=== PATIENT | male | born 1940 | race Hispanic/Latino ===

== ENCOUNTER 2018-04-12 13:21 | Inpatient (IN) | payer MEDICARE, MEDICAID ==
[2018-04-12 14:27] LABS: #Eosinphils 0.1 thou/uL (0.0-0.7); #Lymphocytes 1.2 thou/uL (1.20-3.40); #Monocytes 0.4 thou/uL (0.11-0.59); #Neutrophils 4.7 thou/uL (1.40-6.50); %Basophils 0.3 % (0.0-1.0); %Lymphocytes 18.3 % (21.0-51.0); %Monocytes 5.6 % (0.0-10.0); %Neutrophils 73.7 % (42.0-75.0); Hemoglobin 11.8 g/dL (14.0-18.0); Mean Corpuscular HGB CONC 33.4 g/dL (32.0-36.0); Mean Corpuscular Hemoglobin 34.5 pg (27.0-31.0); Mean Platelet Volume 8.7 fL (7.4-10.4); Platelet Count 141 thou/uL (130-400); RBC Distribution Width 13.5 % (11.5-14.5); Red Blood Cell (RBC) Count 3.43 mill/uL (4.70-6.10); White Blood Cell (WBC) Count 6.4 thou/uL (4.8-10.8)
[2018-04-12 14:51] LABS: ALT (SGPT) 13 U/L (8-55); AST (SGOT) 12 U/L (5-34); Albumin 3.9 g/dL (3.4-4.8); Alkaline Phosphatase 178 U/L (40-150); Anion Gap 18 mmol/L (10-20); BUN (Urea Nitrogen) 53 mg/dL (8.4-25.7); Bilirubin, Total 0.8 mg/dL (0.2-1.2); CK (CPK) 50 U/L (30-200); Calc. Creatinine Clearance 0 mL/min (70-130); Calcium 9.3 mg/dL (7.8-10.44); Carbon Dioxide 26 mmol/L (23-31); Chloride 94 mmol/L (98-107); Estimated GFR-MDRD 6; Globulin 3.7 g/dL (2.4-3.5); Glucose 305 mg/dL (83-110); Lipase 292 U/L (8-78); Potassium 6.3 mmol/L (3.5-5.1); Protein, Total 7.6 g/dL (5.8-8.1); Sodium 132 mmol/L (136-145)
[2018-04-12 14:55] LABS: CKMB 1.5 ng/mL (0-6.6); Troponin I 0.049 ng/mL (< 0.028)
--- NOTE | 2018-04-12 15:01 | RAD ---
UPRIGHT PORTABLE CHEST ONE VIEW: History: 77-year-old male with history of abdominal pain with vomiting and chills this morning. Comparison: 02-26-17 FINDINGS: Rotation to the right. Multiple right sided vascular stents. Post underlying sternotomy. Mild cardiom egaly. Several small circumscribed lucencies overlying the left humerus proximally, possibly artifact ual, although they could conceivably represent small lytic bone lesions. IMPRESSION: No significant acute intrathoracic disease. Post underlying sternotomy with borderline cardiomegaly. Atherosclerosis of the aorta with ectasia. Multiple right sided vascular stents. Two small circumscri bed lucencies overlying the left proximal humerous, nonspecific. POS: C
[2018-04-12] MEDS ORDERED: Atropine Sulfate 1 mg/10 ml Syringe ONE (15:17)
[2018-04-12] MEDS ORDERED: Dextrose 50% Abboject 50 ML SYRINGE ONE (15:19)
[2018-04-12] MEDS ORDERED: Insulin Regular 300 UNITS/3 ML VIAL ONE (15:19)
[2018-04-12] MEDS ORDERED: Sodium Bicarbonate 2.5 MEQ/5 ML VIAL ONE (15:19)
[2018-04-12] MEDS ORDERED: Calcium Chloride 1 GM/10 ML Abboject SYRINGE ONE ×4 (15:19→16:06)
[2018-04-12] MEDS ORDERED: Calcium Gluc 4.6 MEQ/10 ML (100 MG/ML) ONE (15:20)
[2018-04-12 15:32] LABS: Base Excess-Venous 4.3 mmol/L (0 (+/- 2.5)); Bicarbonate (HCO3v) 30.6 mmol/L (1.0-85.0); CO2 Tension (PvCO2) 52.1 mmHg (41.0-51.0); Calcium, Ionized 1.03 mmol/L (1.12-1.32); Hemoglobin - Calc 12.6 g/dL (12.0-18.0); O2 Tension (PvO2) 20.9 mmHg (35.0-45.0); Potassium 7.7 mmol/L (3.4-4.7); T. Carbon Dioxide 32.2 mmol/L (1.0-85.0); pH (Venous) 7.376 (7.35-7.45); vO2 Saturation-calc 32.1 % (94-98)
[2018-04-12] MEDS ORDERED: Ondansetron ODT 4 MG TAB ONE (15:36)
[2018-04-12] MEDS ORDERED: Albuterol Sulfate 2.5 mg/3 ml Neb ONE (15:37)
[2018-04-12] MEDS ORDERED: Albuterol Sulfate 2.5 mg/0.5 ml Neb ONE (15:37)
[2018-04-12] MEDS ORDERED: Acetaminophen 325 MG TAB PO PRN (16:00)
[2018-04-12] MEDS ORDERED: Acetaminophen 650 MG Suppository PR PRN (16:00)
[2018-04-12] MEDS ORDERED: Bisacodyl 5 MG TAB PO PRN (16:00)
[2018-04-12] MEDS ORDERED: Insulin Regular 300 UNITS/3 ML VIAL IVP SCH (16:15)
[2018-04-12] MEDS ORDERED: Dextrose 50% Abboject 50 ML SYRINGE SLOW IVP SCH (16:15)
[2018-04-12 17:19] VITALS: BMI 23.9
[2018-04-12] MEDS ORDERED: HumaLOG 300 UNITS/3 ML VIAL SC PRN (18:08)
[2018-04-12] MEDS ORDERED: Dextrose 50% Abboject 50 ML SYRINGE SLOW IVP PRN (18:08)
[2018-04-12] MEDS ORDERED: Dextrose 5% in Water 1,000 ML IV PRN (18:08)
[2018-04-12] MEDS ORDERED: Insulin Regular 300 UNITS/3 ML VIAL SC PRN (18:08)
--- NOTE | 2018-04-12 18:16 | PDOC.EVN ---
Event Note - Event Note Event Note: 17:00-17:33 hours. Discussed with patient re: medical comorbidities including severe hyperkalemia causing bradycardia. Discussed treatment options. Also discussed goals of care. patient would like to be full code, but if he changes his mind after discussion with family members he will let the team know. Full Code status documented. Grandethan Casillas was in the room and was the charcoal burner beehive kiln for this clinical encounter.
--- NOTE | 2018-04-12 18:43 | HP ---
PRIMARY CARE PROVIDER: Jamari Mcmanus M.D. CHIEF COMPLAINT: Feeling unwell. HISTORY OF PRESENT ILLNESS: Mr. Casillas is a pleasant 77-year-old gentleman, who was seen at [facility] on 04/12/2018. Mr. Casillas is mainly Yakut speaking. His grandson Jack Casillas was the direct support professional caregiver for this clinical encounter. Mr. Casillas was hospitalized at [facility] in 02/2017. At that point, I not e that he had junctional bradycardia and it was advised that he be dialyzed 4 times a week, since on Mondays he develops junctional bradycardia from hyperkalemia. His grandson reports that he has been getting dialysis 4 times a week, on Thursday, Thursday, , and Thursday. He has not missed any o f his dialysis sessions. Today morning, he complained of nausea. He denied any abdominal pain, but reported epigastric abdomi nal discomfort, which he is unable to describe at this time. He was also diaphoretic, clammy and com plained of generalized weakness and difficulty with walking. He was therefore brought to the emergen cy room. In the emergency room, he was noted to have an episode of bradycardia into the 20s heart rate. He wa s resuscitated by emergency room physician and referred for admission. He currently denies any chest pain. He denies any fevers or chills. He denies any nausea or abdomin al pain. REVIEW OF SYSTEMS: All other systems reviewed and found to be negative. PAST MEDICAL HISTORY: Significant for coronary artery disease; diabetes mellitus, type 2; end-stage renal disease, on hemodialysis 4 times a week; hypertension; chronically elevated troponin; dyslipide qing; and obesity. PAST SURGICAL HISTORY: Coronary artery bypass graft, dialysis shunt to right upper and appendectomy. SOCIAL HISTORY: The patient denies tobacco use, alcohol use or recreational drug use. FAMILY HISTORY: He denies any family history of premature coronary artery disease. ALLERGIES: No known drug allergies. CURRENT MEDICATIONS: These need to be clarified, but he appears to be on metoprolol, Renvela, glipiz wes, lisinopril, simvastatin, calcium acetate, aspirin, and Sensipar. CODE STATUS: I discussed his code status. He is FULL CODE. He will discuss with his family and in case he changes his mind, he will let the medical team know. PHYSICAL EXAMINATION: GENERAL: On examination, Mr. Casillas is awake and alert, not in acute distress. VITAL SIGNS: Blood pressure is 175/46, pulse is 91, he is breathing at rate of 20 and saturating 97% on room air. He is afebrile. EYES: No scleral icterus. No conjunctival pallor. ENT: Moist mucosal membranes, no oropharyngeal erythema or exudates. NECK: Supple, nontender, normal range of movement. Trachea is midline. RESPIRATORY: Accessory muscles of breathing are not active. Chest wall movements are symmetric bila terally. Lungs are clear to auscultation without wheeze, rhonchi or crepitations. CARDIOVASCULAR: S1 and S2 are heard, regular. Peripheral pulses palpable. No carotid bruit, no per icardial rub. ABDOMEN: Soft, nontender, bowel sounds heard, no hepatomegaly, no splenomegaly. NEUROLOGIC: Cranial nerves II-XII intact. Deep tendon reflexes 2+. MUSCULOSKELETAL: Power is 5/5 in all 4 extremities. He has dialysis access in the right upper arm. SKIN: No rashes or subcutaneous nodules. LYMPHATIC: No cervical lymphadenopathy. PSYCHIATRIC: Normal mood, normal affect, the patient is oriented to person and place, not to time. IMAGING AND LABORATORY DATA: Mr. Casillas's labs and investigations were reviewed. I reviewed his electrocardiogram, which at 1542 hours shows marked sinus bradycardia, with a ventricular rate of 32 beats per minute as well as tall tented T waves. I also reviewed his chest x-ray, which does not alexandra w any pulmonary infiltrates. He has normal white count, macrocytic anemia with hemoglobin 11.8, norm al platelet count, hyponatremia with sodium of 132, hyperkalemia with potassium of 7.7, elevated crea tinine of 9.89, elevated alkaline phosphatase of 178, otherwise unremarkable liver profile, elevated lipase of 292 and elevated troponin I of 0.049. I note that his troponins have been higher in the me st. ASSESSMENT AND PLAN: Mr. Casillas is a pleasant 77-year-old gentleman who was seen at [facility] on 04/12/2018. His problem list includes: 1. Hyperkalemia: Mr. Casillas is presenting with hyperkalemia. He has received calcium, insulin, followed by dextrose, Kayexalate and beta agonist nebulizers. He is also being prepared for dialysis on an emergent basis. We will recheck his potassium level. 2. Hyponatremia: Mild, we will recheck. 3. Elevated troponin I: His troponin is in the indeterminate range. He denies having any chest maxine n. We will trend troponins for now. 4. End-stage renal disease on dialysis: Maintenance dialysis per Nephrology Service. 5. Elevated lipase: The patient came in with initial complaint of epigastric discomfort, although t hat has resolved now. We will recheck his lipase level. 6. Diabetes mellitus, type 2: Start Accu-Cheks, insulin sliding scale. 7. Hypertension: Monitor vital signs, titrate antihypertensives as needed. 8. Dyslipidemia: Continue home medications once clarified. Many thanks for allowing me to participate in your patient's care. Please feel free to contact me wi th any questions or concerns. LEVEL OF RISK: High. LEVEL OF COMPLEXITY: High.
[2018-04-12 19:00] LABS: CKMB 1.6 ng/mL (0-6.6); Troponin I 0.062 ng/mL (< 0.028)
[2018-04-12] MEDS: hydrALAZINE 20 MG/ML VIAL SLOW IVP PRN (19:15)
[2018-04-12 19:18] LABS: HBSAg Index 0.39 S/CO (0-0.99); Hep B Surf Ag Non-Reactive S/CO (NonReactive)
[2018-04-12 21:12] LABS: Potassium 3.4 mmol/L (3.5-5.1)
[2018-04-12] MEDS: Heparin 5,000 UNITS/ML VIAL SC SCH (21:38)
[2018-04-12 22:57] LABS: CKMB 3.3 ng/mL (0-6.6)
[2018-04-12 23:21] LABS: Troponin I 0.226 ng/mL (< 0.028)
[2018-04-12] MEDS ORDERED: Atorvastatin Calcium 20 MG TAB PO SCH (23:30)
[2018-04-12] MEDS ORDERED: Lisinopril 10 MG TAB PO SCH (23:30)
--- NOTE | 2018-04-13 01:45 | CON ---
DATE OF CONSULTATION: 04/12/2018 HISTORY OF PRESENT ILLNESS: This is a 77-year-old gentleman who apparently was brought into the ER a fter he became somewhat lightheaded. He was found to be bradycardic in the ER. Heart rates in the 2 0s and 30s. He has had a similar episode in the past. Apparently during his last admission, he also was found to have a junctional bradycardia in the 30s. His dialysis was increased from 3 times a day to 4 times a day. He apparently missed his dialysis yesterday. The patient is presently with grandson. Denies any chest pain or shortness of breath. He is going to be dialyzed in the next hour or two. He is being admitted to the MICU, reason for consultation. He denies any difficulty breathing, coughing, or wheezing. PAST MEDICAL HISTORY: Diabetes, end-stage renal disease, lipidemia, hypertension. PAST SURGICAL HISTORY: CABG access, appendix. MEDICATIONS: His list of medicine from home has included aspirin 81, simvastatin 40, lisinopril 5, a nd glipizide 10. ALLERGIES: None. TOBACCO: None. PHYSICAL EXAMINATION: VITAL SIGNS: Pulse 70-80s, blood pressure 130/80, respirations 18, sats are 95%. GENERAL: Awake, alert, responsive. CHEST: Reveals no wheezing. CARDIAC: Normal S1, S2, no gallops. ABDOMEN: Soft. NEUROLOGIC: He is awake, alert, and responsive. EXTREMITIES: No edema. LABORATORY DATA: Shows white count of 6000, H&H 11 and 35, platelet count was 141. Sodium 132, pota ssium 6.3, chloride 91. Venous blood gas shows pH 7.1. BUN is 53, creatinine 9.0. Chest x-ray show s lot of this from edema. IMPRESSION: 1. Bradycardia, probably secondary to hyperkalemia. 2. Renal failure on dialysis 4 times a week. 3. Diabetes. 4. High cholesterol. 5. Hypertension. PLAN: He is going to be dialyzed, observe in the ICU. His bradycardia becomes more symptomatic, con hot mill worker placing an external pacemaker, otherwise consult Cardiology. We will follow. This is a consultation note, 70 minutes of which 50% in direct patient care.
[2018-04-13 05:34] LABS: #Basophils 0.1 thou/uL (0.0-0.2); #Eosinphils 0.1 thou/uL (0.0-0.7); #Lymphocytes 1.6 thou/uL (1.20-3.40); #Monocytes 0.5 thou/uL (0.11-0.59); #Neutrophils 4.2 thou/uL (1.40-6.50); %Basophils 0.9 % (0.0-1.0); %Eosinophils 1.6 % (0.0-10.0); %Lymphocytes 25.1 % (21.0-51.0); %Monocytes 7.8 % (0.0-10.0); %Neutrophils 64.5 % (42.0-75.0); Hemoglobin 12.3 g/dL (14.0-18.0); Mean Corpuscular HGB CONC 33.4 g/dL (32.0-36.0); Mean Corpuscular Hemoglobin 34.7 pg (27.0-31.0); Platelet Count 135 thou/uL (130-400); RBC Distribution Width 13.5 % (11.5-14.5); Red Blood Cell (RBC) Count 3.53 mill/uL (4.70-6.10); White Blood Cell (WBC) Count 6.5 thou/uL (4.8-10.8)
[2018-04-13 06:08] LABS: Anion Gap 17 mmol/L (10-20); BUN (Urea Nitrogen) 28 mg/dL (8.4-25.7); Calc. Creatinine Clearance 11 mL/min (70-130); Calcium 9.6 mg/dL (7.8-10.44); Carbon Dioxide 27 mmol/L (23-31); Chloride 99 mmol/L (98-107); Estimated GFR-MDRD 10; Glucose 97 mg/dL (83-110); Lipase 43 U/L (8-78); Potassium 4.5 mmol/L (3.5-5.1); Sodium 138 mmol/L (136-145)
[2018-04-13] MEDS: Calcium Acetate 667 MG CAP PO SCH ×3 (08:07→17:46)
[2018-04-13] MEDS: Sevelamer Carbonate 800 MG TAB PO SCH ×3 (08:07→17:46)
[2018-04-13] MEDS: Cinacalcet HCl 30 MG TAB PO SCH (08:08)
[2018-04-13] MEDS: Lisinopril 10 MG TAB PO SCH ×2 (08:09→21:11)
[2018-04-13] MEDS: Aspirin 81 mg Enteric Coated Tablet PO SCH (08:09)
[2018-04-13] MEDS: Heparin 5,000 UNITS/ML VIAL SC SCH ×3 (08:09→21:12)
--- NOTE | 2018-04-13 08:53 | PRG ---
DATE OF SERVICE: 04/13/2018 This morning he is awake, alert, responsive. PHYSICAL EXAMINATION: VITAL SIGNS: Pulse is 64, sats 90%, respiration 19, blood pressure 151/21. He was dialyzed yesterda y evening. GENERAL: He feels better. CHEST: Decreased breath sounds, no wheezing. CARDIAC: Normal S1-S2. No gallops. ABDOMEN: No masses. IMPRESSION: 1. Chronic renal failure on 4 weeks of dialysis. 2. Symptomatic bradycardia. PLAN: Continue present treatment. He can be transferred out of the ICU to a monitored bed. Await i nput from Cardiology. Pulmonary Critical Care will follow while in the ICU.
--- NOTE | 2018-04-13 12:20 | PDOC.PN ---
- Subjective Encounter Start Date: 04/13/18 Encounter Start Time: 12:00 Subjective: Patient reports feeling better. No CP/SOB. No N/V. Eating lunch. - Objective MAR Reviewed: Yes Vital Signs & Weight: Vital Signs (12 hours) Temp Pulse Resp BP Pulse Ox 04/13/18 11:00 97.9 F 04/13/18 08:09 144/50 H 04/13/18 07:15 97.8 F 62 12 98 04/13/18 07:00 97.8 F 04/13/18 04:00 97.9 F 04/13/18 02:33 98 04/13/18 00:24 144/50 H Most Recent Monitor Data Heart Rate from ECG 67 NIBP 157/51 NIBP BP-Mean 59 Respiration from ECG 18 SpO2 97 I&O: 04/12/18 04/13/18 04/14/18 06:59 06:59 06:59 Intake Total 155 Output Total 0 Balance 0 155 Result Diagrams: 04/13/18 05:14 04/13/18 05:14 Additional Labs: Accuchecks 04/13/18 04/13/18 06:34 00:19 POC Glucose 68 L 167 H Phys Exam - Physical Examination Constitutional: NAD HEENT: moist MMs Respiratory: no wheezing, no rales, no rhonchi Cardiovascular: RRR, no significant murmur Gastrointestinal: soft, positive bowel sounds Neurological: non-focal, moves all 4 limbs Psychiatric: normal affect, A&O x 3 Dx/Plan (1) Hyperkalemia Code(s): E87.5 - HYPERKALEMIA Status: Resolved (2) Bradycardia Code(s): R00.1 - BRADYCARDIA, UNSPECIFIED Status: Resolved (3) Anemia in chronic kidney disease Code(s): N18.9 - CHRONIC KIDNEY DISEASE, UNSPECIFIED; D63.1 - ANEMIA IN CHRONIC KIDNEY DISEASE Status: Chronic (4) Coronary artery disease Code(s): I25.10 - ATHSCL HEART DISEASE OF [place] CORONARY ARTERY W/O ANG PCTRS Status: Chronic Qualifiers: (5) Diabetes mellitus type 2 in obese Code(s): E11.9 - TYPE 2 DIABETES MELLITUS WITHOUT COMPLICATIONS; E66.9 - OBESITY , UNSPECIFIED Status: Chronic (6) End stage renal disease Code(s): N18.6 - END STAGE RENAL DISEASE Status: Chronic (7) Hypertension Code(s): I10 - ESSENTIAL (PRIMARY) HYPERTENSION Status: Chronic Qualifiers: (8) Elevated lipase Code(s): R74.8 - ABNORMAL LEVELS OF OTHER SERUM ENZYMES Status: Resolved (9) Elevated troponin Code(s): R74.8 - ABNORMAL LEVELS OF OTHER SERUM ENZYMES Status: Acute Comment: bumped to 0.2, will consult Dr. Chakraborty - Plan cont current plan of care, DVT proph w/heparin can transfer out of unit * . - Discharge Day Encounter end time: 12:15
[2018-04-13] MEDS: hydrALAZINE 20 MG/ML VIAL SLOW IVP PRN (13:24)
[2018-04-13] MEDS ORDERED: Ondansetron ORAL SOLN. 4 MG/5 ML UDCUP PO PRN (15:27)
[2018-04-13] MEDS ORDERED: Ondansetron HCl/PF 4 MG/2 ML Vial IVP PRN (15:27)
[2018-04-13] MEDS ORDERED: Labetalol HCl 100 MG/20 ML VIAL SLOW IVP PRN (15:39)
[2018-04-13] MEDS ORDERED: hydrALAZINE 25 MG TAB PO SCH (15:45)
[2018-04-13] MEDS ORDERED: Losartan 25 MG TAB PO SCH (16:00)
[2018-04-13] MEDS ORDERED: Atorvastatin Calcium 20 MG TAB PO SCH (21:00)
[2018-04-13] MEDS: hydrALAZINE 25 MG TAB PO SCH (21:11)
[2018-04-14 05:40] LABS: Anion Gap 15 mmol/L (10-20); BUN (Urea Nitrogen) 45 mg/dL (8.4-25.7); Calc. Creatinine Clearance 8 mL/min (70-130); Calcium 8.9 mg/dL (7.8-10.44); Carbon Dioxide 31 mmol/L (23-31); Chloride 96 mmol/L (98-107); Estimated GFR-MDRD 7; Glucose 186 mg/dL (83-110); Potassium 4.6 mmol/L (3.5-5.1); Sodium 137 mmol/L (136-145)
[2018-04-14 06:44] LABS: #Eosinphils 0.1 thou/uL (0.0-0.7); #Lymphocytes 1.4 thou/uL (1.20-3.40); #Monocytes 0.4 thou/uL (0.11-0.59); #Neutrophils 2.7 thou/uL (1.40-6.50); %Basophils 0.8 % (0.0-1.0); %Eosinophils 2.8 % (0.0-10.0); %Lymphocytes 30.3 % (21.0-51.0); %Monocytes 7.8 % (0.0-10.0); %Neutrophils 58.3 % (42.0-75.0); Hemoglobin 11.3 g/dL (14.0-18.0); Mean Corpuscular HGB CONC 33.2 g/dL (32.0-36.0); Mean Corpuscular Hemoglobin 34.7 pg (27.0-31.0); Platelet Count 127 thou/uL (130-400); RBC Distribution Width 13.4 % (11.5-14.5); Red Blood Cell (RBC) Count 3.26 mill/uL (4.70-6.10); White Blood Cell (WBC) Count 4.6 thou/uL (4.8-10.8)
--- NOTE | 2018-04-14 08:38 | PRG ---
DATE OF SERVICE: 04/14/2018 He is awake, alert, responsive, in no respiratory distress. PHYSICAL EXAMINATION: VITAL SIGNS: Blood pressure is 140/66, pulse 62, temperature 99, respiration rate 16. CHEST: No wheezing. CARDIAC: Normal S1, S2. No gallops. ABDOMEN: Soft, no masses. LABORATORY: White count 4000, H&H 11 and 34, creatinine is 7.2. IMPRESSION: 1. Status post bradycardia. 2. Chronic renal failure on dialysis. 3. Hypertension. PLAN: From the pulmonary standpoint of view, appears to be stable enough to be discharged home. Reyna it input from Cardiology.
[2018-04-14] MEDS ORDERED: Losartan 25 MG TAB PO SCH (09:00)
[2018-04-14] MEDS: Calcium Acetate 667 MG CAP PO SCH ×3 (09:31→17:05)
[2018-04-14] MEDS: Sevelamer Carbonate 800 MG TAB PO SCH ×3 (09:31→17:05)
[2018-04-14] MEDS: hydrALAZINE 25 MG TAB PO SCH ×2 (09:33→15:58)
[2018-04-14] MEDS: Heparin 5,000 UNITS/ML VIAL SC SCH ×2 (09:33→15:58)
--- NOTE | 2018-04-14 10:41 | PDOC.PN ---
- Subjective Encounter Start Date: 04/14/18 Encounter Start Time: 11:50 Subjective: Patient without complaints. No further bradycardia since potassium -: normalized. - Objective MAR Reviewed: Yes Vital Signs & Weight: Vital Signs (12 hours) Temp Pulse Resp BP BP Pulse Ox 04/14/18 08:00 98.3 F 65 18 137/64 95 04/14/18 04:00 99.3 F 62 16 142/66 H 95 04/13/18 23:54 142/63 H Most Recent Monitor Data Heart Rate from ECG 67 NIBP 168/59 NIBP BP-Mean 71 Respiration from ECG 19 SpO2 97 I&O: 04/13/18 04/14/18 04/15/18 06:59 06:59 06:59 Intake Total 890 Output Total 0 0 Balance 0 890 Result Diagrams: 04/14/18 05:02 04/14/18 05:02 Additional Labs: Accuchecks 04/14/18 04/13/18 04/13/18 06:08 23:54 17:33 POC Glucose 176 H 178 H 111 H Phys Exam - Physical Examination Constitutional: NAD HEENT: moist MMs Respiratory: no wheezing, no rales, no rhonchi Cardiovascular: RRR 2/6 ANNABELLA Gastrointestinal: soft, positive bowel sounds Neurological: non-focal, moves all 4 limbs Psychiatric: normal affect, A&O x 3 Dx/Plan (1) Hyperkalemia Code(s): E87.5 - HYPERKALEMIA Status: Resolved (2) Bradycardia Code(s): R00.1 - BRADYCARDIA, UNSPECIFIED Status: Resolved (3) Anemia in chronic kidney disease Code(s): N18.9 - CHRONIC KIDNEY DISEASE, UNSPECIFIED; D63.1 - ANEMIA IN CHRONIC KIDNEY DISEASE Status: Chronic (4) Coronary artery disease Code(s): I25.10 - ATHSCL HEART DISEASE OF [place] CORONARY ARTERY W/O ANG PCTRS Status: Chronic Qualifiers: (5) Diabetes mellitus type 2 in obese Code(s): E11.9 - TYPE 2 DIABETES MELLITUS WITHOUT COMPLICATIONS; E66.9 - OBESITY , UNSPECIFIED Status: Chronic (6) End stage renal disease Code(s): N18.6 - END STAGE RENAL DISEASE Status: Chronic (7) Hypertension Code(s): I10 - ESSENTIAL (PRIMARY) HYPERTENSION Status: Chronic Qualifiers: Comment: Improved control today (8) Elevated lipase Code(s): R74.8 - ABNORMAL LEVELS OF OTHER SERUM ENZYMES Status: Resolved (9) Elevated troponin Code(s): R74.8 - ABNORMAL LEVELS OF OTHER SERUM ENZYMES Status: Acute Comment: bumped to 0.2, Dr. Wellington has seen and cleared patient for discharge - Plan cont current plan of care, DVT proph w/heparin Can d/c home * . - Discharge Day Encounter end time: 12:00
--- NOTE | 2018-04-14 12:46 | CON ---
DATE OF CONSULTATION: 04/14/2018 INDICATION FOR CONSULTATION: A 77-year-old patient with bradycardia. HISTORY OF PRESENT ILLNESS: This is very pleasant 77-year-old gentleman who has end-stage renal dise ase on hemodialysis 4 times a week. He has a history of hyperkalemia presented with severe bradycard ia and hyperkalemia with potassium level was 7.7 on 04/12/2018. He has undergone dialysis. Since un dergoing dialysis the potassium has returned to normal and his bradycardia has resolved. His heart r ate has remained in the 60s. He did have 1 episode earlier this morning with a 1.8 second pause, thi s was just sinus bradycardia with a slight pause not significant. At this time he is undergoing dial ysis and he denies any complaints. His troponin I was slightly elevated originally on admission it w as 0.062 and increased up to 0.226, still indeterminate for any myocardial infarction. Cardiac enzy mes; MB was unremarkable and most likely this indicates demand ischemia associated with the bradycard ia and hyperkalemia and end-stage renal disease. He has had a history in the past of coronary artery disease. He has undergone bypass surgery. He lechuga s also had a stent placement to the ostium of the right coronary, bypass surgery with CABG in x4 with the NUÑEZ to the left anterior descending artery, saphenous vein graft to the diagonal branch, a osman s and the distal right coronary artery. He has been noncompliant with his followups. He was seen in the hospital last year in 02/[address] Brown for a very similar episode of hyperkalemia. Anat beck his bypass surgery was in 2008. He was seen in 2010, as well as in 2011 and again in 2017 with hyperkalemia and bradycardia. Heart rates have been in the 20s. When he arrived this time also, hea rt rate was in the 20s, with significant pauses, but after the emergent dialysis and correction of th e hyperkalemia he has remained stable. There is no indication the patient needs a pacemaker at this time since with the hyperkalemia, even if he had a pacemaker it would fail to capture with the hyperk alemia. Even in the future should he become bradycardic with hyperkalemia the pacemaker would not ca pture. Otherwise, he denies any symptoms. He denies any chest pain or shortness of breath. He spea ks very little Indian, but does understand the questions and does answer to yes and no. PAST MEDICAL HISTORY: This is significant for hypertension, diabetes, hypercholesterolemia, end-stag e renal disease, coronary artery disease, bypass surgery, AV fistulas. He has had an appendectomy. MEDICATIONS PRIOR TO ADMISSION: Included Sensipar, Renvela, Toprol-XL PhosLo, Glucotrol-XL, low dose aspirin 81 mg, Zestril 10 mg b.i.d. ALLERGIES: None. SOCIAL HISTORY: He has no alcohol or tobacco abuse. FAMILY HISTORY: Unremarkable for any early heart disease. REVIEW OF SYSTEMS: Twelve point review of systems unremarkable from what I can ascertain at this coco e in talking to the patient with his yes and no answers, but does not appear to be in any distress an d appears to be comfortable at this time. PHYSICAL EXAMINATION: GENERAL: Reveals an elderly gentleman who is in no acute distress. VITAL SIGNS: His blood pressure is 137/64, heart rate 65, respiratory rate 18, O2 saturation 95%. H e is afebrile. HEENT: Reveals the head to be normocephalic and atraumatic. Carotid pulses are present. I did not hear any bruits. CHEST: Clear to auscultation without rales, rhonchi or wheezing. CARDIOVASCULAR: Exam reveals a regular rate and rhythm. He has a normal S1, S2. I did not hear an S3 nor an S4. He has a very soft systolic murmur over the aortic area. I did not hear any heaves or thrills. ABDOMEN: Shows obesity with positive bowel sounds. No organomegaly or masses are noted. Femoral pu lses are present. EXTREMITIES: Show no clubbing, cyanosis or edema. Pedal pulses also remain intact. NEUROLOGIC: The patient appears to be fully intact with normal strength and tone. SKIN: Warm and dry. EKG on admission showed severe bradycardia, difficult to interpret otherwise, due to the hyperkalemia . At this time, he has continued to have sinus rhythm with no acute changes. After his potassium lechuga d been corrected earlier in the emergency room actually, the original EKG in the emergency room did s how hyperacute T waves and then became more bradycardic. He did not have any severe widening of the QRS, but did have significant bradycardia and had an episode of asystole of almost 5 seconds while in the emergency room. Since that time, he has remained stable. His laboratory data shows a hemoglobin of 11.3, hematocrit 34, WBC is 4.6 and today his potassium was 4.6. However, the creatinine was elevated again at 7.2 with a BUN of 45. Yesterday the creatinine was 5.3, blood sugar was 186. At this time, he appears to be relatively stable so long as he continu es with his dialysis. As far as his hyperkalemia, this will be dealt with by the job analyst as far as his dialysate is concerned and is 4 times a week he undergoes dialysis. IMPRESSION: 1. Hyperkalemia, which has now been resolved, which prompted severe bradycardia and pauses. This lechuga s now been corrected and his heart rate is now stable. There is no indication the patient needs a pa cemaker insertion. 2. Chronically elevated cardiac enzymes which are indeterminate and this does not indicate myocardia l infarction. 3. Coronary artery disease, status post bypass surgery. This appears to be stable at this time. He needs to follow up with Dr. Brown in the office for further evaluation and perhaps stress testing in the future. 4. Hypertension. This is also under good control at this time with the present medications and dial ysis. 5. End-stage renal disease for which he continues with his hemodialysis 4 times a week. 6. Hyperlipidemia. This has been followed by the Renal Service and I believe has remained stable. I did not see a recent cholesterol on this hospitalization. This can also be followed as an outpatie nt. Thank you very much for the consultation. At this time, the patient appears to be stable and should be able to be discharged to home after dialysis if the vital signs and laboratory data remains stable.
[2018-04-14] MEDS: Lisinopril 10 MG TAB PO SCH (15:55)
[2018-04-14] MEDS: Cinacalcet HCl 30 MG TAB PO SCH (15:56)
[2018-04-14] MEDS: Aspirin 81 mg Enteric Coated Tablet PO SCH (15:58)
[2018-04-14 16:44] VITALS: BP 145/63; TEMP 97.9
--- NOTE | 2018-04-15 02:38 | DIS ---
PRIMARY CARE PHYSICIAN: Jamari Mcmanus M.D. REASON FOR ADMISSION: Hyperkalemia and bradycardia. DISCHARGE DIAGNOSES: 1. Hyperkalemia, resolved. 2. Bradycardia, resolved. 3. End-stage renal disease on dialysis. 4. Coronary artery disease with elevated troponin, likely demand ischemia. 5. Anemia of chronic disease. 6. Diabetes mellitus, type 2. 7. Hypertension. PROCEDURES: None. CONSULTATIONS: 1. Pulmonology, Dr. Lindsey. 2. Cardiology, Dr. Wellington. SUMMARY OF HOSPITAL COURSE: This is a 77-year-old male who has a history of hyperkalemia ac tually has to be dialyzed 4 times a week. Otherwise, he developed junctional bradycardia for his hyp erkalemia. He has been getting all the dialysis; however, the morning of admission, he has been comp lained of nausea, some epigastric discomfort, and then some generalized weakness, difficulty walking along with diaphoresis. He was brought to the emergency room and found to have bradycardia into the 20s and hyperkalemia 7.7. Patient was taken immediately to dialysis, had resolution of the hyperkale qing and his bradycardia resolved with treatment of the hyperkalemia. He did have a troponin of 0.2. Dr. Wellington was consulted. He determined that this was demand ischemia, likely from his poor heart fun ction while he was hyperkalemic. He was doing well with stable vital signs the day of discharge and is being discharged to home. DISCHARGE MANAGEMENT: Discharged to home. Follow up with Dr. Brown in 2-[address] Krueger as scheduled for dialysis and with Dr. Mcmanus in 7 days. ACTIVITY: As tolerated. DIET: Renal diet. DISCHARGE MEDICATIONS: 1. Adding hydralazine 25 mg 3 times a day, 90 tablets dispensed and then resume all home medications . 2. Aspirin 81 mg daily. 3. PhosLo 1334 mg three times a day. 4. Sensipar 60 mg daily. 5. Lisinopril 10 mg twice a day. 6. Toprol-XL 25 mg twice a day. 7. Renvela 1600 mg three times a day. 8. Simvastatin 40 mg at night. 9. Glipizide 10 mg each morning.
== END 2018-04-14 17:57 | disposition home or self-care (01) | DRG 308 ==
LOC: ERS 13:21 → CCU 17:08 → 2NO 04-13 21:00
PROVIDERS: ADMIT Internal Medicine; ATTEND Internal Medicine
DX: R00.1 Bradycardia, unspecified (principal); N18.6 End stage renal disease; I24.8 Other forms of acute ischemic heart disease; I12.0 Hypertensive chronic kidney disease with stage 5 chronic kidney disease or end stage renal disease; E87.1 Hypo-osmolality and hyponatremia; E11.22 Type 2 diabetes mellitus with diabetic chronic kidney disease; E87.5 Hyperkalemia; D63.1 Anemia in chronic kidney disease; Z99.2 Dependence on renal dialysis; I25.10 Atherosclerotic heart disease of native coronary artery without angina pectoris; E78.5 Hyperlipidemia, unspecified; R74.8 Abnormal levels of other serum enzymes; E66.9 Obesity, unspecified; Z95.1 Presence of aortocoronary bypass graft; Z79.84 Long term (current) use of oral hypoglycemic drugs; Z79.82 Long term (current) use of aspirin; Z68.23 Body mass index [BMI] 23.0-23.9, adult
CPT/HCPCS: 36415; 36416; 71045; 80048; 80053; 82330; 82550; 82553; 82803; 83605; 83690; 84484; 85025; 87340; 90935; 93005; 94640; 94760; 96374; 96375; 96376; G0257; J0360; J0461; J1644; J1815; J2405; J7611; Q0162

== ENCOUNTER 2018-05-03 18:25 | Observation (INO) | payer MEDICARE, MEDICAID ==
[2018-05-03 19:14] LABS: #Eosinphils 0.2 thou/uL (0.0-0.7); #Lymphocytes 1.4 thou/uL (1.20-3.40); #Monocytes 0.4 thou/uL (0.11-0.59); %Basophils 0.6 % (0.0-1.0); %Eosinophils 2.6 % (0.0-10.0); %Lymphocytes 20.3 % (21.0-51.0); %Monocytes 5.4 % (0.0-10.0); %Neutrophils 71.1 % (42.0-75.0); Hemoglobin 11.1 g/dL (14.0-18.0); Mean Corpuscular Hemoglobin 34.5 pg (27.0-31.0); Mean Corpuscular Volume 98.5 fL (78.0-98.0); Mean Platelet Volume 8.6 fL (7.4-10.4); Platelet Count 134 thou/uL (130-400); RBC Distribution Width 12.4 % (11.5-14.5); Red Blood Cell (RBC) Count 3.21 mill/uL (4.70-6.10)
--- NOTE | 2018-05-03 19:35 | RAD ---
PORTABLE AP CHEST X-RAY: 05/03/2018 HISTORY: Chest pain. Dizziness. COMPARISON: 04/12/2018 FINDINGS: Post surgical changes related to median sternotomy are again present. The cardiac silhouette is magn ified by projection. Vascular stents again overly the region of the right subclavian vessels. Mild chronic lung changes are seen. There is no consolidation or pleural fluid seen. Vascular calcificat ions are seen in the thoracic aorta. There is osteopenia. IMPRESSION: No acute cardiopulmonary process. POS: HANS
[2018-05-03 19:40] LABS: Troponin I 0.055 ng/mL (< 0.028)
[2018-05-03 19:47] LABS: ALT (SGPT) 11 U/L (8-55); AST (SGOT) 11 U/L (5-34); Albumin 4.2 g/dL (3.4-4.8); Alkaline Phosphatase 170 U/L (40-150); Anion Gap 15 mmol/L (10-20); BUN (Urea Nitrogen) 15 mg/dL (8.4-25.7); Bilirubin, Total 0.7 mg/dL (0.2-1.2); Calc. Creatinine Clearance 0 mL/min (70-130); Calcium 9.9 mg/dL (7.8-10.44); Carbon Dioxide 32 mmol/L (23-31); Chloride 94 mmol/L (98-107); Estimated GFR-MDRD 15; Globulin 4.1 g/dL (2.4-3.5); Glucose 171 mg/dL (83-110); Protein, Total 8.3 g/dL (5.8-8.1); Sodium 137 mmol/L (136-145)
[2018-05-03] MEDS ORDERED: Nitroglycerin 2% Ointment 1 INCH/1 GM Packet ONE (23:07)
[2018-05-04 00:29] VITALS: BMI 26.7
[2018-05-04] MEDS ORDERED: Ondansetron HCl/PF 4 MG/2 ML Vial IVP PRN (01:11)
[2018-05-04] MEDS ORDERED: Ondansetron ODT 4 MG TAB SL PRN (01:11)
[2018-05-04 02:44] LABS: Troponin I 0.057 ng/mL (< 0.028)
[2018-05-04] MEDS ORDERED: hydrALAZINE 25 MG TAB PO SCH ×2 (05:30→16:45)
[2018-05-04] MEDS ORDERED: Nitroglycerin 2% Ointment 1 INCH/1 GM Packet TOP SCH (06:00)
[2018-05-04 07:35] LABS: Anion Gap 14 mmol/L (10-20); BUN (Urea Nitrogen) 23 mg/dL (8.4-25.7); Calc. Creatinine Clearance 11 mL/min (70-130); Calcium 9.2 mg/dL (7.8-10.44); Carbon Dioxide 30 mmol/L (23-31); Chloride 97 mmol/L (98-107); Estimated GFR-MDRD 10; Glucose 166 mg/dL (83-110); Potassium 4.6 mmol/L (3.5-5.1); Sodium 136 mmol/L (136-145)
[2018-05-04] MEDS ORDERED: HumaLOG 300 UNITS/3 ML VIAL SC PRN (07:52)
[2018-05-04] MEDS ORDERED: Dextrose 5% in Water 1,000 ML IV PRN (07:52)
[2018-05-04] MEDS ORDERED: Ondansetron ODT 4 MG TAB PO PRN (07:52)
[2018-05-04] MEDS ORDERED: Dextrose 50% Abboject 50 ML SYRINGE SLOW IVP PRN (07:52)
--- NOTE | 2018-05-04 08:38 | HP ---
PRIMARY CARE PROVIDER: Dr. Jamari Mcmanus. CHIEF COMPLAINT: Referred to [facility] by [facility] for chest pain. HISTORY OF PRESENT ILLNESS: Patient was hemodialysis yesterday, developed palpitations, some dizzine ss, some headache, some pressure in his chest, lasted about 30 minutes, associated with no radiation of the chest pressure, no sweats, no shortness of breath. PAST MEDICAL HISTORY: Pertinent for coronary artery disease with a history of myocardial infarction in the past, diabetes mellitus type 2 with end-stage renal disease, he is on hemodialysis 4 times a w [place] [employer], has hypertension, dyslipidemia. PAST SURGICAL HISTORY: He has had coronary artery bypass graft and a hemodialysis shunt in the right upper arm. He has had an appendectomy. MEDICATIONS: He did not bring his medicines with him, last admitted 1 month ago. He is on hydralazi ne 25 mg 3 times a day, glipizide 10 mg a day, Zocor 40 mg a day, Renvela 1600 mg p.o. t.i.d., metopr olol 25 mg twice a day, lisinopril 10 mg b.i.d., Sensipar 60 mg a day, PhosLo 1334 mg 3 times a day, aspirin 81 mg a day. ALLERGIES: He has no allergies. SOCIAL HISTORY: . Denies tobacco, alcohol, or recreational drug use. CODE STATUS: FULL CODE status. Declined to name a surrogate decision maker. FAMILY HISTORY: No premature coronary artery disease in his family. REVIEW OF SYSTEMS: General: No fevers, sweats or chills. 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 Poor visio n in the right eye. ENT: No ear pain or drainage. No nasal bleeding. No trouble swallowing. Card iac: See present illness. No orthopnea, paroxysmal nocturnal dyspnea. Respiratory: No shortness o f breath, dyspnea on exertion, cough, wheezing. Gastrointestinal: No nausea, vomiting, diarrhea or constipation. Genitourinary: Makes no urine. Musculoskeletal: No pain or swelling in his arms or legs. Neurological: No strokes, seizures or focal weakness. Psychiatric: No anxiety or depression. Skin: No bruises, bleeding or rash. Heme/Lymph: No tender or swollen lymph nodes in axilla, inguinal or cervical area. PHYSICAL EXAMINATION: GENERAL: Alert, oriented and cooperative, [place]ots[place]an speaking gentleman with his grandson at the bedsid e who is knowledgeable and cooperative, speaks excellent British. VITAL SIGNS: His blood pressure is elevated at 206/86, pulse 70, room air saturation 98, respiration s 20, temperature 98.1. HEENT: Reveal right pupil is greater than the left, the left is unreactive, but the right is reactiv e. Extraocular movements are grossly intact. Sclerae white. Tympanic membranes clear. Nose clear. Oral mucous membranes are wet. Dental hygiene is fair. NECK: No jugular venous distention, adenopathy or thyromegaly. CHEST: Clear to auscultation and percussion. HEART: Had a regular rate and rhythm. First and second heart sounds are clear. There was a 2/6 sys tolic murmur. ABDOMEN: Soft, bowel sounds are normal. There is no hepatosplenomegaly, no mass, no rebound. EXTREMITIES: Reveal no cyanosis, clubbing or edema. PULSES: Carotid, radial, and femoral pulses were symmetric and full. Pedal pulses were diminished. SKIN: Warm and dry without bruises or rash. HEME/LYMPH: Reveals no tender or swollen lymph nodes in axilla, inguinal or cervical area. NEUROLOGIC: Cranial nerves II through XII are intact. Deep tendon reflexes symmetric and decreased. Moves all extremities equally. IMAGING: His EKG revealed marked changes of LVH with repolarization abnormality. He was in sinus rh [facility], reviewed by me. Chest x-ray, postoperative sternotomy changes. Lung hernandez clear. Heart size is normal. LABORATORY DATA: Troponin 0.055, 0.060, 0.057. Creatinine 4.02, BUN 15, CO2 32, chloride 94, sodium 137, potassium 4.0, white count 7.0, hemoglobin 11.1, platelet count 134,000. ASSESSMENT: Chest pain/tightness, coronary artery disease with history of myocardial infarction, mil d cardiomyopathy with EF 45%-50%, diabetes mellitus type 2, not on insulin, with end-stage renal dise ase, hypertension, dyslipidemia. PLAN: Continue aspirin, selected home medicines. The patient with a history of coronary artery dise ase, stress test done a year ago, unremarkable except for a fixed defect. A Cardiolite nuclear medic ine stress test will be repeated today.
[2018-05-04] MEDS ORDERED: Aspirin 325 mg Enteric Coated Tablet PO SCH (09:00)
[2018-05-04] MEDS: Acetaminophen 325 MG TAB PO PRN ×2 (13:40→20:15)
[2018-05-04] MEDS ORDERED: Labetalol HCl 100 MG/20 ML VIAL SLOW IVP PRN (15:53)
[2018-05-04] MEDS: Calcium Acetate 667 MG CAP PO SCH (16:58)
[2018-05-04] MEDS: hydrALAZINE 25 MG TAB PO SCH (20:15)
[2018-05-04] MEDS ORDERED: Simvastatin 40 MG TAB PO SCH (21:00)
[2018-05-04] MEDS: hydrALAZINE 20 MG/ML VIAL SLOW IVP PRN (21:40)
[2018-05-05] MEDS: hydrALAZINE 20 MG/ML VIAL SLOW IVP PRN (05:16)
[2018-05-05] MEDS: Calcium Acetate 667 MG CAP PO SCH ×2 (08:49→10:25)
[2018-05-05] MEDS ORDERED: Aspirin 81 mg Enteric Coated Tablet PO SCH (09:00)
[2018-05-05] MEDS: hydrALAZINE 25 MG TAB PO SCH ×2 (10:25→14:22)
[2018-05-05 11:21] VITALS: BP 139/63; TEMP 98.3
--- NOTE | 2018-05-05 11:48 | NM ---
NUCLEAR MEDICINE CARDIAC PERFUSION WITH EJECTION FRACTION: Comparison: 02-28-17 History: 77-year-old male with chest pain. Prior CABG. Technique: A two-day nuclear medicine cardiac perfusion examination was performed. Rest images were o btained using 29.3 mCi Technetium 99M Sestamibi. Stress images were obtained using 32.4 mCi Technetiu m 99M Sestamibi and Adenosine. FINDINGS: Tomographic images show no reversible perfusion defects. There is a medium sized moderate intensity f ixed perfusion defect along the lateral wall which may represent a remote infarction. Gated images show global hypokinesis with an ejection fraction of 37%. EV: 168 ml LHR: 10.2 TID: 1.2 IMPRESSION: 1. No evidence of ischemia. 2. Remote infarction along the lateral wall. POS: RUBA
--- NOTE | 2018-05-05 12:19 | DIS ---
DATE OF ADMISSION: 05/04/2018 DATE OF DISCHARGE: 05/05/2018 TRANSFER OF CARE PRIMARY CARE PROVIDER: Jamari Mcmanus M.D. DISCHARGE DISPOSITION: Discharged home to go to the outpatient dialysis center first. FINAL DIAGNOSES: Chest pain, noncardiac; end-stage renal disease, on hemodialysis; type 2 diabetes; cardiomyopathy. DISCHARGE MEDICATIONS: The same as his home medications. Glipizide 10 mg a day, Renvela 1600 mg 3 t imes a day, lisinopril 10 mg twice a day, PhosLo 1334 p.o. t.i.d., aspirin 81 mg a day, Apresoline 25 mg t.i.d., Zocor 40 mg a day, metoprolol 25 mg p.o. b.i.d., Sensipar 60 mg a day. ALLERGIES: None. DIET: Renal. High protein. CODE STATUS: Full. HOSPITAL COURSE: The patient admitted to [facility] through [facility] with some palpitation, dizziness, pressure in his chest. He has a history of coronary artery disease, hypertension, dyslipidemia. EKG revealed LVH with repolarization abnormality. Chest x-ray was clear. Troponins were 0.055, 0.060, 0.057. His last cardiac stress test was done a year ago. A nuclear medicine stress test once again revealed a fixed defect with no reversible defect. The sam ent is asymptomatic. Case management has arranged for him to be seen at his usual dialysis center. Today at 3:30, he is being discharged to keep that. PROCEDURES: None. CONSULTATIONS: None.
[2018-05-05] MEDS ORDERED: Regadenoson 0.4 MG/5 ML SYRINGE ONE (13:04)
== END 2018-05-05 15:02 | disposition home or self-care (01) ==
LOC: ERS 18:25 → 2SW 23:08
PROVIDERS: ADMIT Internal Medicine; ATTEND Internal Medicine
DX: R07.89 Other chest pain (principal); E11.22 Type 2 diabetes mellitus with diabetic chronic kidney disease; N18.6 End stage renal disease; I25.10 Atherosclerotic heart disease of native coronary artery without angina pectoris; I12.0 Hypertensive chronic kidney disease with stage 5 chronic kidney disease or end stage renal disease; E78.5 Hyperlipidemia, unspecified; I25.2 Old myocardial infarction; I42.9 Cardiomyopathy, unspecified; Z79.899 Other long term (current) drug therapy; Z99.2 Dependence on renal dialysis; Z79.82 Long term (current) use of aspirin; Z79.84 Long term (current) use of oral hypoglycemic drugs
CPT/HCPCS: 71045; 78452; 80048; 80053; 82553; 82962 ×3; 84484 ×3; 85025; 93005; 93017; 94760 ×2; 96374; 96376; 99285; A9500; G0378; 36415; 36416; 90935; G0257; J0360; J2785; Q0162

== ENCOUNTER 2018-08-28 10:35 | Emergency (ER) | payer MEDICARE, MEDICAID ==
[2018-08-28 11:39] LABS: #Eosinphils 0.1 thou/uL (0.0-0.7); #Lymphocytes 1.5 thou/uL (1.20-3.40); #Monocytes 0.5 thou/uL (0.11-0.59); #Neutrophils 9.4 thou/uL (1.40-6.50); %Basophils 0.3 % (0.0-1.0); %Eosinophils 1.3 % (0.0-10.0); %Monocytes 4.5 % (0.0-10.0); %Neutrophils 80.9 % (42.0-75.0); Hemoglobin 11.6 g/dL (14.0-18.0); Mean Corpuscular HGB CONC 34.3 g/dL (32.0-36.0); Mean Corpuscular Hemoglobin 34.4 pg (27.0-31.0); Mean Platelet Volume 8.7 fL (7.4-10.4); Platelet Count 223 thou/uL (130-400); RBC Distribution Width 12.3 % (11.5-14.5); Red Blood Cell (RBC) Count 3.37 mill/uL (4.70-6.10); White Blood Cell (WBC) Count 11.6 thou/uL (4.8-10.8)
[2018-08-28 12:05] LABS: ALT (SGPT) 10 U/L (8-55); AST (SGOT) 11 U/L (5-34); Albumin 4.2 g/dL (3.4-4.8); Alkaline Phosphatase 167 U/L (40-150); Anion Gap 15 mmol/L (10-20); BUN (Urea Nitrogen) 12 mg/dL (8.4-25.7); Bilirubin, Total 0.8 mg/dL (0.2-1.2); Calc. Creatinine Clearance 0 mL/min (70-130); Calcium 9.4 mg/dL (7.8-10.44); Carbon Dioxide 28 mmol/L (23-31); Estimated GFR-MDRD 18; Glucose 186 mg/dL (83-110); Phosphorus 2.1 mg/dL (2.3-4.7); Potassium 3.4 mmol/L (3.5-5.1); Protein, Total 8.2 g/dL (5.8-8.1); Sodium 135 mmol/L (136-145)
[2018-08-28 12:07] LABS: CKMB 1.4 ng/mL (0-6.6); Troponin I 0.054 ng/mL (< 0.028)
[2018-08-28 12:12] LABS: Chloride 95 mmol/L (98-107)
--- NOTE | 2018-08-28 12:46 | RAD ---
PORTABLE CHEST: Date: 08/28/18 PROVIDED CLINICAL HISTORY: Altered mental status. FINDINGS: Comparison with 05/03/18. Cardiac and mediastinal silhouette is unchanged in appearance. Vascular calcification, vascular stent material, and median sternotomy change are again seen. Lungs are hypoinflated, but grossly clear. Th e lung apices are largely obscured by patient's neck soft tissues, precluding evaluation for pneumoth orax. There is no evidence for pleural fluid. IMPRESSION: No evidence for an acute cardiopulmonary process with limitations as above. POS: RUBA
--- NOTE | 2018-08-28 12:50 | CT ---
CT BRAIN: Date: 08/28/18 PROVIDED CLINICAL HISTORY: Altered mental status. FINDINGS: Comparison made with the study dated 12/08/11. The ventricular system is appears normal in size and morphology. There is no evidence for intracrani al hemorrhage or mass effect. Prominent vascular calcifications are seen. The extracranial soft tissu es and osseous structures demonstrate an otherwise unremarkable CT appearance. IMPRESSION: No evidence for intracranial hemorrhage or mass effect. POS: HANS
== END 2018-08-28 13:19 | disposition home or self-care (01) ==
LOC: ERS 10:35
DX: R41.0 Disorientation, unspecified (principal); R41.82 Altered mental status, unspecified; E78.2 Mixed hyperlipidemia; I12.0 Hypertensive chronic kidney disease with stage 5 chronic kidney disease or end stage renal disease; N18.6 End stage renal disease; E11.22 Type 2 diabetes mellitus with diabetic chronic kidney disease; Z99.2 Dependence on renal dialysis
CPT/HCPCS: 36415; 70450; 71045; 80053; 82553; 83735; 84100; 84484; 85025; 93005

== ENCOUNTER 2019-03-01 18:32 | Observation (INO) | payer MEDICARE, MEDICAID ==
[~2019-03-01 18:32] MED LIST: Iopamidol 370 76% 100 ML VIAL ONE
[2019-03-01 20:08] LABS: Hemoglobin 11.6 g/dL (14.0-18.0); Mean Corpuscular HGB CONC 34.3 g/dL (32.0-36.0); Mean Corpuscular Hemoglobin 35.7 pg (27.0-31.0); Mean Platelet Volume 9.6 fL (7.4-10.4); Platelet Count 139 thou/uL (130-400); RBC Distribution Width 13.9 % (11.5-14.5); Red Blood Cell (RBC) Count 3.26 mill/uL (4.70-6.10); White Blood Cell (WBC) Count 21.4 thou/uL (4.8-10.8)
[2019-03-01 20:27] LABS: ALT (SGPT) 14 U/L (8-55); AST (SGOT) 12 U/L (5-34); Albumin 3.6 g/dL (3.4-4.8); Alkaline Phosphatase 154 U/L (40-150); Anion Gap 14 mmol/L (10-20); BUN (Urea Nitrogen) 30 mg/dL (8.4-25.7); Band 14 % (5-11); Calc. Creatinine Clearance 0 mL/min (70-130); Calcium 8.9 mg/dL (7.8-10.44); Carbon Dioxide 30 mmol/L (23-31); Chloride 86 mmol/L (98-107); Estimated GFR-MDRD 10; Globulin 3.1 g/dL (2.4-3.5); Lymphocytes 2 % (21-51); MDiff Complete? YES; Monocytes 4 % (0-10); Neutrophil 80 % (42-75); Platelet Morphology Comment Appears Adequate; Potassium 4.3 mmol/L (3.5-5.1); Protein, Total 6.7 g/dL (5.8-8.1); Sodium 126 mmol/L (136-145)
[2019-03-01 20:33] LABS: Glucose 742 mg/dL (83-110)
[2019-03-01] MEDS ORDERED: Clindamycin/D5W 900 mg/50 ml Premix Bag ONE (22:00)
--- NOTE | 2019-03-01 22:04 | CT ---
CT maxillofacial with contrast: 03/01/2019 at 9:40 PM HISTORY: 78-year-old male with right-sided facial swelling and right jaw pain. FINDINGS: There is fat stranding representing edema in the superficial subcutaneous fat in a broad region later al to the right side of the mandible. This fat stranding also involves the right buccal space. There are are several missing teeth in the upper and lower jaws. There are multiple defects at the cr owns of numerous teeth representing caries. There are multiple small periapical lucencies around the roots of teeth in the mandible and maxilla, consistent with periapical cysts. One of these involving the right mandible, is contiguous with a 5 mm defect on the buccal side of the right mandibular body, which is very close to 1.5 x 0.5 cm small fluid collection in the right buccal space abutting the right anterior mandibular body, with mild, faint rim enhancement, consisten t with gingival abscess. Other than a tiny mucus retention cyst in the left maxillary sinus, the paranasal sinuses are grossly clear. The orbits are clear. IMPRESSION: 1.) Dental abscess involving the right mandible. 2) severe, extensive poor dentition with numerous carious teeth, missing teeth, and numerous periapic al (radicular) cysts.
[2019-03-02] MEDS ORDERED: Dextrose 50% Abboject 50 ML SYRINGE SLOW IVP PRN (07:42)
[2019-03-02] MEDS ORDERED: Acetaminophen 325 MG TAB PO PRN (07:42)
[2019-03-02] MEDS ORDERED: Ondansetron ODT 4 MG TAB PO PRN (07:42)
[2019-03-02] MEDS ORDERED: Dextrose 5% in Water 1,000 ML IV PRN (07:42)
[2019-03-02] MEDS ORDERED: HumaLOG 300 UNITS/3 ML VIAL SC PRN (07:42)
[2019-03-02] MEDS ORDERED: Clindamycin/D5W 300 MG in Premix Bag 1 BAG IVPB SCH (08:00)
[2019-03-02] MEDS ORDERED: Metoprolol Tartrate 25 MG TAB ONE (08:15)
[2019-03-02] MEDS ORDERED: HumaLOG 300 UNITS/3 ML VIAL ONE (08:15)
[2019-03-02] MEDS ORDERED: Lisinopril 10 MG TAB ONE (08:15)
--- NOTE | 2019-03-02 08:33 | HP ---
PRIMARY CARE PROVIDER: Jamari Mcmanus MD HISTORY OF PRESENT ILLNESS: The patient referred to the [facility] by [facility]. The patient presented with dental pain and facial swelling on the right for 3 days. He was found to have elevated blood sugar at 742 and elevated white count at about 21,000. When I went into examine him, he stated that he no no comprende Slovenian. I got out the settlement worker phone and he either did not understand how to use it or did not respond, but he did not respond to it at all. No other history was available at that time. Once he gets up stairs, we will try again with the settlement worker phone, but he just would not respond to it. PAST MEDICAL HISTORY: Pertinent for end-stage renal disease, on hemodialysis routinely. He has a history of coronary artery disease with myocardial infarction in the past, type 2 diabetes, hypertension, dyslipidemia. PAST SURGICAL HISTORY: Coronary artery bypass graft, hemodialysis shunt in the right upper arm. He has had an appendectomy. CURRENT MEDICATIONS: 1. Aspirin 81 mg a day. 2. MiraLAX unknown dose. 3. Renvela 800 mg two tabs a day. 4. Metoprolol 25 mg twice a day. 5. Sensipar 30 mg a day. 6. Glipizide 10 mg a day. 7. Plavix 75 mg a day. 8. Zocor 40 mg a day. ALLERGIES: NO KNOWN DRUG ALLERGIES. SOCIAL HISTORY: . Full code status. she saw him declined to name a surrogate decision maker. He drinks no alcohol. Uses no drugs. No tobacco. FAMILY HISTORY: Negative for coronary artery disease. REVIEW OF SYSTEMS: I was unable to get him to respond to the settlement worker phone. Therefore, I did not obtain a review of systems in the emergency room. We obtained only a history of right facial swelling and dental pain. PHYSICAL EXAMINATION: GENERAL: He is alert, responds with a negative of speaking Slovenian, but does not respond to the settlement worker phone. VITAL SIGNS: His blood pressure initially was 202/74, his latest is 173/60. Pulse is in the 80s to 90 range, respirations are 16 to 14. His temperature was afebrile x4. HEAD, EYES, EARS, NOSE, AND THROAT: Pupils are equal, round, and reactive on the right, and left is unreactive. The right pupil is greater than the left. This is consistent with old finding. Sclerae are white. Tympanic membranes are clear. Nose is clear. His oral exam reveals tenderness in the right lower buccal gumline. He has multiple missing and carious teeth. NECK: Revealed no adenopathy, jugular venous distention, or thyromegaly. CHEST: Clear to auscultation and percussion. HEART: Has a regular rate and rhythm. First and second heart sounds are clear. No murmurs or gallops. ABDOMEN: Soft. Bowel sounds are normal. There is no hepatosplenomegaly. No mass. No rebound. EXTREMITIES: Reveal no cyanosis, clubbing, or edema. PULSES: Carotid, radial, and femoral pulses are intact. Pedal pulses are somewhat diminished compared to normal. SKIN: Warm and dry without bruise or rash. HEME/LYMPH: No tender or swollen lymph nodes in the axilla, inguinal, or cervical area. NEUROLOGICAL: Cranial nerves 2 through 12 are intact. Deep tendon reflexes are symmetric. IMAGING STUDIES: Facial bone CT reviewed by me reveals a dental abscess in the right mandible and extensive caries, etc. LABORATORY DATA: Sodium 126, potassium 4.3, BUN 30, creatinine 5.8, blood sugar 742, alkaline phosphatase 154. White count 21.4, hemoglobin 11.6, platelet count 139,000. ADMITTING PROBLEMS: 1. Dental abscess. 2. Leukocytosis. 3. Diabetes mellitus type 2 with end-stage renal disease, uncontrolled. 4. Hypertension. 5. Coronary artery disease. PLAN: We will admit to the hospital on observation basis. IV clindamycin has been started. We will consult Oral Surgery. The patient will be made n.p.o. for the current time. He will be placed on Accu-Chek's. He will be given his usual medicines, except his oral hypoglycemic agent with sips of water as we try to get this abscess cared for. Blood cultures have been drawn, but I do not see any evidence of true systemic findings as he is afebrile with no tachycardia, etc. The only true complication with this patient has been his inability to communicate with the settlement worker phone. We will try again later or perhaps find a employee he was able to assist me with translation. Job ID: [id number]
[2019-03-02] MEDS ORDERED: Cinacalcet HCl 30 MG TAB PO SCH (09:00)
[2019-03-02] MEDS ORDERED: Lisinopril 10 MG TAB PO SCH (09:00)
[2019-03-02] MEDS ORDERED: hydrALAZINE 25 MG TAB ONE (09:16)
[2019-03-02] MEDS: Calcium Acetate 667 MG CAP PO SCH ×3 (10:09→16:58)
[2019-03-02] MEDS: hydrALAZINE 25 MG TAB PO SCH ×2 (10:10→15:56)
[2019-03-02] MEDS: Sevelamer Carbonate 800 MG TAB PO SCH ×3 (10:10→16:58)
[2019-03-02 14:54] VITALS: BP 187/77; TEMP 97.6
[2019-03-02 14:55] VITALS: BMI 29.9
[2019-03-02] MEDS ORDERED: Atorvastatin Calcium 20 MG TAB PO SCH (21:00)
--- NOTE | 2019-03-03 07:54 | DIS ---
DATE OF ADMISSION: 03/01/2019 DATE OF DISCHARGE: 03/02/2019 TRANSFER OF CARE NOTE: PRIMARY CARE PHYSICIAN: Jamari Mcmanus MD FINAL DIAGNOSES: Dental abscess, diabetes mellitus type 2, coronary artery disease, end-stage renal disease, dyslipidemia. DISCHARGE MEDICINES: 1. Cleocin 300 mg p.o. q.i.d. for one week. 2. Usual medications: a. Aspirin 81 mg a day. b. PhosLo 1334 t.i.d. c. Sensipar 60 mg a day. d. Lisinopril 10 mg a day. e. Metoprolol 25 mg twice a day. f. Sevelamer 600 mg t.i.d. g. Zocor 40 mg a day. h. Glipizide 10 mg a day. i. Hydralazine 25 mg three times a day. ALLERGIES: NO ALLERGIES. PENDING AT TIME OF DISCHARGE: Blood cultures were drawn earlier today. DIET: Renal. CODE STATUS: Full. HOSPITAL COURSE: [facility]. He had a blood sugar of 700 and a high white count. CT confirmed a dental abscess. His white count was 21.4, 11.6 hemoglobin, 139 platelets. BUN 30, creatinine 5.8, sodium 126, potassium 4.3, CO2 of 30. His blood sugar was 742. He was put on sliding scale and his usual medicines. It came down to 404, 317, 131, 119. The patient refused to speak to me or the tube bending machine operator phone this morning despite the fact that I had admitted him before and he had spoken to me in Irish. He kept saying No Comprende. This afternoon, he related to me talking with some of my staff and refusing to talk with others. His son was present. I went in and told the son what was happening. He said he has been doing that occasionally for months. He had been talking fluently with the son, but when the son addresses the issue to him, he turned away and closed his eyes. I asked the son if he had psychiatric issues and he said that he had just been acting funny lately. He is afebrile. Cardio respiratory exam is normal. Vital signs are stable. There is no need for emergent hemodialysis. I have discharged him on 300 mg of Cleocin q.i.d. for a week. I have told them that they need to find him a dentist to be seen on an urgent basis. I have told them he needs to go to hemodialysis tomorrow to make up for the dialysis. He missed today. As I said before, he shows no volume overload. No hyperkalemia. No acidosis or anything that would suggest emergent need for dialysis. CONSULTATIONS: None. PROCEDURES: None. Job ID: [id number]
== END 2019-03-02 17:59 | disposition home or self-care (01) ==
LOC: ERS 18:32 → ERHOLD 23:20 → 2SW 03-02 14:27
PROVIDERS: ADMIT Hospitalist; ATTEND Hospitalist
DX: K04.7 Periapical abscess without sinus (principal); E11.65 Type 2 diabetes mellitus with hyperglycemia; K02.9 Dental caries, unspecified; K04.8 Radicular cyst; I12.0 Hypertensive chronic kidney disease with stage 5 chronic kidney disease or end stage renal disease; E11.22 Type 2 diabetes mellitus with diabetic chronic kidney disease; N18.6 End stage renal disease; I25.2 Old myocardial infarction; I25.10 Atherosclerotic heart disease of native coronary artery without angina pectoris; E78.5 Hyperlipidemia, unspecified; Z79.82 Long term (current) use of aspirin; Z79.84 Long term (current) use of oral hypoglycemic drugs; Z79.02 Long term (current) use of antithrombotics/antiplatelets; Z79.899 Other long term (current) drug therapy; Z99.2 Dependence on renal dialysis; Z95.1 Presence of aortocoronary bypass graft
CPT/HCPCS: 70487; 80053; 82010; 82962; 85025; 87040; 96361; 96365; 99285; G0378 ×2; 36415; 36416; J3490; Q9967

== ENCOUNTER 2019-06-08 11:26 | Emergency (ER) | payer MEDICARE, MEDICAID ==
[2019-06-08] MEDS ORDERED: Piperacillin/Tazobactam 4.5 GM VIAL ONE (15:00)
== END 2019-06-08 13:38 | disposition home or self-care (01) ==
LOC: ERS 11:26
DX: T82.838A Hemorrhage due to vascular prosthetic devices, implants and grafts, initial encounter (principal); E78.5 Hyperlipidemia, unspecified; E78.2 Mixed hyperlipidemia; I12.0 Hypertensive chronic kidney disease with stage 5 chronic kidney disease or end stage renal disease; N18.6 End stage renal disease; Z99.2 Dependence on renal dialysis; E11.22 Type 2 diabetes mellitus with diabetic chronic kidney disease; Z79.899 Other long term (current) drug therapy; Z79.82 Long term (current) use of aspirin; Z79.84 Long term (current) use of oral hypoglycemic drugs
CPT/HCPCS: 99283; J2543; J3370

== ENCOUNTER 2019-10-07 10:44 | Emergency (ER) | payer MEDICARE, MEDICAID ==
[2019-10-07 12:21] LABS: #Eosinphils 0.2 thou/uL (0.0-0.7); #Lymphocytes 1.3 thou/uL (1.20-3.40); #Monocytes 0.5 thou/uL (0.11-0.59); #Neutrophils 4.8 thou/uL (1.40-6.50); %Basophils 0.5 % (0.0-1.0); %Eosinophils 3.6 % (0.0-10.0); %Lymphocytes 18.7 % (21.0-51.0); %Monocytes 6.8 % (0.0-10.0); %Neutrophils 70.4 % (42.0-75.0); Hemoglobin 10.9 g/dL (14.0-18.0); Mean Corpuscular HGB CONC 34.4 g/dL (32.0-36.0); Mean Corpuscular Hemoglobin 35.2 pg (27.0-31.0); Mean Platelet Volume 8.4 fL (7.4-10.4); Platelet Count 138 thou/uL (130-400); RBC Distribution Width 13.7 % (11.5-14.5); Red Blood Cell (RBC) Count 3.11 mill/uL (4.70-6.10); White Blood Cell (WBC) Count 6.8 thou/uL (4.8-10.8)
[2019-10-07 12:37] LABS: Anion Gap 8 mmol/L (10-20); BUN (Urea Nitrogen) 8 mg/dL (8.4-25.7); Calc. Creatinine Clearance 0 mL/min (70-130); Calcium 9.2 mg/dL (7.8-10.44); Carbon Dioxide 36 mmol/L (23-31); Chloride 95 mmol/L (98-107); Estimated GFR-MDRD 20; Glucose 191 mg/dL (83-110); Potassium 3.4 mmol/L (3.5-5.1); Sodium 136 mmol/L (136-145)
--- NOTE | 2019-10-11 14:29 | EKG ---
Test Reason : Blood Pressure : / mmHG Vent. Rate : 070 BPM Atrial Rate : 070 BPM P-R Int : 000 ms QRS Dur : 104 ms QT Int : 452 ms P-R-T Axes : 000 -42 127 degrees QTc Int : 488 ms Normal sinus rhythm Left axis deviation Left ventricular hypertrophy with repolarization abnormality Inferior infarct , age undetermined Abnormal ECG Confirmed by DUANE RANDLE, CRISELDA ([id number]), clinical editor JARET ROWLAND ([id number]) on 10/11/2019 2:29:10 PM Referred By: Confirmed By:CRISELDA ZEPEDA MD
== END 2019-10-07 16:12 | disposition home or self-care (01) ==
LOC: ERS 10:44
DX: E78.5 Hyperlipidemia, unspecified (principal); E11.22 Type 2 diabetes mellitus with diabetic chronic kidney disease; I12.0 Hypertensive chronic kidney disease with stage 5 chronic kidney disease or end stage renal disease; N18.6 End stage renal disease; Z79.899 Other long term (current) drug therapy
CPT/HCPCS: 36415; 80048; 85025; 93005